=== PATIENT | female | born 2005 | race Caucasian/White ===

== ENCOUNTER 2023-05-18 06:49 | Day surgery (SDC) | payer MEDICAID ==
[~2023-05-18] VITALS: Ht 170.2 cm; Wt 64.9 kg
[2023-05-18] MEDS ORDERED: SIMETHICONE 40 MG/0.6 ML ML ONE (07:16)
[2023-05-18] MEDS ORDERED: MEPERIDINE 100 MG INJ. 100 MG/ML VIAL ONE ×2 (07:17→08:44)
[2023-05-18] MEDS ORDERED: MIDAZOLAM HCL 5 MG/5 ML VIAL ONE ×2 (07:17→08:44)
[2023-05-18 07:44] LABS: HCG,QUAL RESULT NEGATIVE (NEGATIVE)
[2023-05-18] MEDS ORDERED: ONDANSETRON HCL 4 MG/2 ML VIAL ONE (08:30)
[2023-05-18] MEDS ORDERED: DIPHENHYDRAMINE INJ 50 MG/ML VIAL ONE (08:41)
[2023-05-18 15:57] VITALS: BP_SYST 129; PULSE 89; RESP 18; TEMP 99; O2SAT 99
== END 2023-05-18 09:45 | disposition home or self-care (01) ==
LOC: SDS 06:49 → SMU 06:50 → SDS 09:45
PROVIDERS: ATTEND Internal Medicine Gastroenterology
DX: R10.9 Unspecified abdominal pain (principal); K29.50 Unspecified chronic gastritis without bleeding; R11.0 Nausea; R63.4 Abnormal weight loss; R19.4 Change in bowel habit; Z68.22 Body mass index [BMI] 22.0-22.9, adult; Z90.89 Acquired absence of other organs; Z79.899 Other long term (current) drug therapy; Z80.0 Family history of malignant neoplasm of digestive organs
CPT/HCPCS: 43239; 87081; 84703; 36415; 88305; 88312; 88313; 99152; G0378; J1200; J2250; J2405; J2175